=== PATIENT | male | born 1980 | race Caucasian/White ===

== ENCOUNTER 2023-01-28 20:02 | Emergency (ER) | payer SELFPAY ==
--- NOTE | ~2023-01-28 | CT_ITS ---
EXAMINATION: CT abdomen pelvis w con INDICATION: Abdominal pain TECHNIQUE: Computed tomographic images of the abdomen and pelvis were obtained after the administrati on of 100 cc of Omnipaque 350 intravenous contrast. The dose-length product (DLP) was 455.35 mGy-cm. Automated exposure control and iterative reconstruction technique were employed. COMPARISON: None available FINDINGS: The lung bases are clear. The heart size is normal. Punctate calcifications in an otherwise normal spleen likely represent healed granulomatous disease. The liver, pancreas, gallbladder, and a drenal glands are normal. There is wall thickening in the body and antrum of the stomach. There is a questionable ulceration of along the medial body of the stomach. No definite gastric perforation is i dentified. The kidneys are unremarkable. No pathologically enlarged abdominal or pelvic lymph nodes a re identified. No free intraperitoneal gas or evidence of bowel obstruction. There is circumferential wall thickening involving multiple loops of small bowel, some are which are upper normal limit in di ameter. IMPRESSION: 1. CT findings suggestive of gastroenteritis. 2. Possible gastric ulcer. GI follow-up and possible endoscopy are recommended. These findings and recommendations were discussed with Dr. Helms at 2033 hours on 01/29/2023. Reviewed, dictated and finalized at location F. IMPRESSION: 1. CT findings suggestive of gastroenteritis. 2. Possible gastric ulcer. GI follow-up and possible endoscopy are recommended. These findings and recommendations were discussed with Dr. Helms at 2033 hour s on 01/29/2023.
[2023-01-28 20:06] VITALS: BP 152/97; PULSE 58; RESP 18; TEMP 36.8; O2SAT 98
[2023-01-28 20:23] VITALS: BP 145/73; PULSE 60
--- NOTE | 2023-01-28 20:44 | ED.GENADULT ---
HPI - General Adult General Chief complaint: Abdominal Pain Stated complaint: Abdominal Pain History of Present Illness HPI narrative: Healthy 42yo man presents with mid abdominal pain for the past 4 days, waxing and waning, moderate severity, with nausea and vomiting, watery diarrhea, no fevers, no dysuria. He had a black stool yesterday, no black of bloody stools today. Related Data Allergies Allergy/AdvReac Type Severity Reaction Status Date / Time No Known Allergies Allergy Verified 01/28/23 20:43 Review of Systems Review of Systems: All systems reviewed & are unremarkable except as noted in HPI and below Constitutional: Constitutional: Denies fever(s) Cardiovascular: Cardiovascular: Denies chest pain Respiratory: Respiratory: Denies dyspnea Exam Const: General: healthy appearing Nutritional Appearance: well nourished Orientation/consciousness: patient oriented x3 HENMT: Mouth: Yes dry mucous membranes Eyes: Conjunctivae: conjunctivae normal Neck: Other: supple Resp: Effort & Inspection: normal respiratory effort Auscultation: clear to auscultation bilaterally Cardio: Rate: regular rate Rhythm: regular rhythm GI: Inspection: non-distended GI Palp: Yes Soft to palpation and No Tenderness to palpation present (GI) Skin: General skin exam: normal color, no jaundice and no pallor Neuro: General: patient oriented x3 and moves all extremities Extrem: General: normal to inspection and no edema Course Vital Signs Vital signs: Vital Signs Temperature 36.8 C 01/28/23 20:06 Pulse Rate 58 L 01/28/23 20:06 Respiratory Rate 18 01/28/23 20:06 Blood Pressure 152/97 H 01/28/23 20:06 Pulse Oximetry 98 01/28/23 20:06 Oxygen Delivery Room Air 01/28/23 20:06 Temperature 36.8 C 01/28/23 20:06 Pulse Rate 60 01/28/23 21:10 Respiratory Rate 18 01/28/23 21:10 Blood Pressure 132/81 01/28/23 21:10 Pulse Oximetry 99 01/28/23 21:10 Oxygen Delivery Room Air 01/28/23 21:10 Medical Decision Making [facility] Narrative Medical decision making narrative: periumbilical abdominal pain DDx gastroenteritis, colitis, appendicitis, lower GI bleeding. CT to evaluate. NSAIDs, antihistamines for comfort. IV fluids for dehydration. Vital Signs Vital Signs: Vital Signs Temperature 36.8 C 01/28/23 20:06 Pulse Rate 58 L 01/28/23 20:06 Respiratory Rate 18 01/28/23 20:06 Blood Pressure 152/97 H 01/28/23 20:06 Pulse Oximetry 98 01/28/23 20:06 Oxygen Delivery Room Air 01/28/23 20:06 Temperature 36.8 C 01/28/23 20:06 Pulse Rate 60 01/28/23 21:10 Respiratory Rate 18 01/28/23 21:10 Blood Pressure 132/81 01/28/23 21:10 Pulse Oximetry 99 01/28/23 21:10 Oxygen Delivery Room Air 01/28/23 21:10 Lab Data 01/28/23 21:02 01/28/23 21:02 Labs: Lab Results 01/28/23 01/28/23 Range/Units 21:02 21:02 WBC 12.9 H (4.8-10.8) K/mm3 RBC 5.73 (4.70-6.10) M/mm3 Hgb 17.1 (14.0-18.0) g/dL Hct 49.2 (40.0-54.0) % MCV 85.9 (78.0-102.0) fL MCH 29.8 (27.0-31.0) pg MCHC 34.8 (32.0-36.0) g/dL RDW 12.7 (11.6-14.4) % Plt Count 293 (150-420) K/mm3 MPV 10.7 (8.7-11.0) fl Immature Gran % (Auto) 0.4 H (0.0-0.0) % Neut % (Auto) 79.5 H (50.0-70.0) % Lymph % (Auto) 12.0 L (18.0-42.0) % [place] % (Auto) 6.7 (2.0-11.0) % Eos % (Auto) 1.0 (1.0-6.0) % Baso % (Auto) 0.4 (0.0-1.0) % Lymph # (Auto) 1.54 (1.10-4.50) K/mm3 [place] # (Auto) 0.86 (0.10-0.90) K/mm3 Eos # (Auto) 0.13 (0.02-0.50) K/mm3 Baso # (Auto) 0.05 (0.00-0.10) K/mm3 Abs Immat Gran (auto) 0.05 H (0.00-0.00) K/mm3 Absolute Neuts (auto) 10.2 H (1.7-7.2) K/mm3 Absolute Nucleated RBC 0.00 (0.00-0.00) K/mm3 Nucleated RBC % 0.0 (0-0.0) % Sodium 140 (136-145) mmol/L Potassium 4.0 (3.5-5.1) mmol/L Chloride 101 (98-108) mmol/L Carbon Dioxide 31 (21-32) mmol/L Ani
[2023-01-28] MEDS: KETOROLAC 30 MG/ML VIAL (*BKC) IV PUSH (21:08)
[2023-01-28] MEDS: diphenhydrAMINE HCl INJ 50 MG/ML VIAL 25 MG IV PUSH (21:08)
[2023-01-28] MEDS: LACTATED RINGERS 1,000 ML 999 ML IV CONT (21:08)
[2023-01-28 21:09] LABS: Basophils Absolute Auto 0.05 K/mm3 (0.00-0.10); Basophils Percent Auto 0.4 % (0.0-1.0); Eosinophils Absolute Auto 0.13 K/mm3 (0.02-0.50); Hematocrit 49.2 % (40.0-54.0); Hemoglobin 17.1 g/dL (14.0-18.0); Immature Granulocyte Absolute 0.05 K/mm3 (0.00-0.00); Immature Granulocyte Percent A 0.4 % (0.0-0.0); Lymphocytes Absolute Auto 1.54 K/mm3 (1.10-4.50); Mean Corpuscular HGB Conc 34.8 g/dL (32.0-36.0); Mean Corpuscular Hemoglobin 29.8 pg (27.0-31.0); Mean Corpuscular Volume 85.9 fL (78.0-102.0); Mean Platelet Volume 10.7 fl (8.7-11.0); Monocytes Absolute Auto 0.86 K/mm3 (0.10-0.90); Monocytes Percent Auto 6.7 % (2.0-11.0); Neutrophils Absolute Auto 10.2 K/mm3 (1.7-7.2); Neutrophils Percent Auto 79.5 % (50.0-70.0); Platelet Count Result 293 K/mm3 (150-420); Red Blood Count 5.73 M/mm3 (4.70-6.10); Red Cell Distribution Width 12.7 % (11.6-14.4); White Blood Count 12.9 K/mm3 (4.8-10.8)
[2023-01-28 21:10] VITALS: BP 132/81; PULSE 60; RESP 18; O2SAT 99
[2023-01-28] MEDS: Please add drug allergy info to patient profile. 1 EACH XX (21:12)
[2023-01-28 21:42] LABS: Alanine Aminotransferase 22 U/L (16-63); Albumin Level 3.3 g/dL (3.4-5.0); Alkaline Phosphatase 68 U/L (46-116); Anion Gap 8 mmol/L (8-16); Aspartate Amino Transferase 13 U/L (15-37); Bilirubin,Total 0.6 mg/dL (0.00-1.00); Calcium 8.5 mg/dL (8.5-10.1); Carbon Dioxide 31 mmol/L (21-32); Chloride 101 mmol/L (98-108); Estimated CRCL calculation 101 ml/min; Estimated Glomerular Filt Rate > 60; Lipase 19 U/L (16-77); Magnesium 1.9 mg/dL (1.8-2.4); Sodium 140 mmol/L (136-145); Total Protein 6.8 g/dL (6.4-8.2)
[2023-01-28 21:43] LABS: Lactic Acid Reflex 1.4 mmol/L (0.4-2.0)
[2023-01-28 21:49] LABS: Blood Urea Nitrogen 16 mg/dL (7-18); Glucose 118 mg/dL (70-99); Osmolality Calculated 292 mOsm/kg (285-295)
[2023-01-28 21:54] LABS: Ethanol < 3 mg/dL (0-6)
[2023-01-28 23:04] VITALS: PULSE 77; RESP 18; TEMP 36.2; O2SAT 98
--- NOTE | 2023-01-30 10:02 | PC.NURSE ---
PER DR LACEY, CERTIFIED LETTER SENT. PT NEEDS TO BE ON PROTONIX 40 MG PO DAILY X 30 DAYS AND TO FOLLOW UP WITH PMD.
--- NOTE | 2023-01-30 11:58 | ED.GENADULT ---
HPI - General Adult General Chief complaint: Abdominal Pain Stated complaint: Abdominal Pain History of Present Illness HPI narrative: This patient was seen in the emergency department on [address] showed changes consistent with a gastric ulcer. The patient's emergency contact was contacted by nursing staff and attempted to reach the patient. He called back today and I informed him of his findings on the CT. He states he is taking [id number] antacid medications with improvement. Related Data Allergies Allergy/AdvReac Type Severity Reaction Status Date / Time No Known Allergies Allergy Verified 01/28/23 20:43 Course Course Emergency Course: 12:00 - I advised the patient of his CT findings. I offered prescription antacid medications including PPI versus Pepcid. The patient prefers to use [id number] medications. I advised him to follow-up with his primary care doctor. Patient voiced understanding is comfortable with the plan. All questions answered to his satisfaction. Vital Signs Vital signs: Vital Signs Temperature 98.2 F 01/28/23 20:06 Pulse Rate 58 L 01/28/23 20:06 Respiratory Rate 18 01/28/23 20:06 Blood Pressure 152/97 H 01/28/23 20:06 Pulse Oximetry 98 01/28/23 20:06 Oxygen Delivery Room Air 01/28/23 20:06 Temperature 97.2 F L 01/28/23 23:04 Pulse Rate 77 01/28/23 23:04 Respiratory Rate 18 01/28/23 23:04 Blood Pressure 132/81 01/28/23 21:10 Pulse Oximetry 98 01/28/23 23:04 Oxygen Delivery Room Air 01/28/23 23:04 Medical Decision Making Vital Signs Vital Signs: Vital Signs Temperature 98.2 F 01/28/23 20:06 Pulse Rate 58 L 01/28/23 20:06 Respiratory Rate 18 01/28/23 20:06 Blood Pressure 152/97 H 01/28/23 20:06 Pulse Oximetry 98 01/28/23 20:06 Oxygen Delivery Room Air 01/28/23 20:06 Temperature 97.2 F L 01/28/23 23:04 Pulse Rate 77 01/28/23 23:04 Respiratory Rate 18 01/28/23 23:04 Blood Pressure 132/81 01/28/23 21:10 Pulse Oximetry 98 01/28/23 23:04 Oxygen Delivery Room Air 01/28/23 23:04 Lab Data 01/28/23 21:02 01/28/23 21:02 Labs: Lab Results 01/28/23 01/28/23 Range/Units 21:02 21:02 WBC 12.9 H (4.8-10.8) K/mm3 RBC 5.73 (4.70-6.10) M/mm3 Hgb 17.1 (14.0-18.0) g/dL Hct 49.2 (40.0-54.0) % MCV 85.9 (78.0-102.0) fL MCH 29.8 (27.0-31.0) pg MCHC 34.8 (32.0-36.0) g/dL RDW 12.7 (11.6-14.4) % Plt Count 293 (150-420) K/mm3 MPV 10.7 (8.7-11.0) fl Immature Gran % (Auto) 0.4 H (0.0-0.0) % Neut % (Auto) 79.5 H (50.0-70.0) % Lymph % (Auto) 12.0 L (18.0-42.0) % [place] % (Auto) 6.7 (2.0-11.0) % Eos % (Auto) 1.0 (1.0-6.0) % Baso % (Auto) 0.4 (0.0-1.0) % Lymph # (Auto) 1.54 (1.10-4.50) K/mm3 [place] # (Auto) 0.86 (0.10-0.90) K/mm3 Eos # (Auto) 0.13 (0.02-0.50) K/mm3 Baso # (Auto) 0.05 (0.00-0.10) K/mm3 Abs Immat Gran (auto) 0.05 H (0.00-0.00) K/mm3 Absolute Neuts (auto) 10.2 H (1.7-7.2) K/mm3 Absolute Nucleated RBC 0.00 (0.00-0.00) K/mm3 Nucleated RBC % 0.0 (0-0.0) % Sodium 140 (136-145) mmol/L Potassium 4.0 (3.5-5.1) mmol/L Chloride 101 (98-108) mmol/L Carbon Dioxide 31 (21-32) mmol/L Anion Gap 8 (8-16) mmol/L BUN 16 (7-18) mg/dL Creatinine 1.05 (0.70-1.30) mg/dL Estim Creat Clear Calc 101 ml/min Estimated GFR > 60 (59 - ) Glucose 118 H (70-99) mg/dL Calculated Osmolality 292 (285-295) mOsm/kg Lactic Acid 1.4 (0.4-2.0) mmol/L Calcium 8.5 (8.5-10.1) mg/dL Magnesium 1.9 (1.8-2.4) mg/dL Total Bilirubin 0.6 (0.00-1.00) mg/dL AST 13 L (15-37) U/L ALT 22 (16-63) U/L Alkaline Phosphatase 68 (46-116) U/L Total Protein 6.8 (6.4-8.2) g/dL Albumin 3.3 L (3.4-5.0) g/dL Lipase 19 Cancelled (16-77) U/L Ethyl Alcohol < 3 (0-6) mg/dL Discharge Plan Discharge Clinical Impression: Acute oynathan
== END 2023-01-28 23:05 | disposition home or self-care (01) ==
PROVIDERS: Emergency Provider Emergency Medicine
DX: K52.9 Noninfective gastroenteritis and colitis, unspecified (principal)
CPT/HCPCS: 36415; 74177; 80053; 80307; 83605; 83690; 83735; 85025; 96361; 96374; 96375; 99284; J1200; J1885; J7120; Q9967